=== PATIENT | male | born 1960 | race Caucasian/White ===

== ENCOUNTER 2017-07-31 12:08 | Emergency (ER) | payer OTHER ==
[2017-07-31] MEDS ORDERED: Albuterol/Ipratropium 3.0-0.5 MG/3 ML Neb Soln NEB ONE (12:15)
[2017-07-31] MEDS ORDERED: Sodium Chloride 0.9% 10 ML Syringe FLUSH PRN (12:25)
--- NOTE | 2017-07-31 12:28 | EDM.PDOC ---
ED HPI GENERAL MEDICAL PROBLEM - General Chief Complaint: Respiratory Problem Stated Complaint: BRONCHITIS NOT BETTER/LOW OXYGEN LEVEL Time Seen by Provider: 07/31/17 12:17 Source of Information: Reports: Patient History Limitations: Reports: No Limitations - History of Present Illness INITIAL COMMENTS - FREE TEXT/NARRATIVE: 56-year-old male presents the ER for evaluation and treatment of wheezing and shortness of breath. Reports that his symptoms started on Friday. He has a history of COPD and asthma. He presented to the clinic on Friday. He was started on antibiotics and steroids. He normally takes nebulizers at home and has been taking these as prescribed. He states that since being seen his symptoms have not improved. States in the clinic his oxygen levels were low in the upper 80s. He was encouraged him to the ER on Friday but decides to go home instead. Currently complaining of a little bit of a sore throat and headaches. No fevers, chills, nausea, vomiting or any ear pain. No swelling in the legs. Primary care providers Dr. Coombs - Related Data Allergies Allergy/AdvReac Type Severity Reaction Status Date / Time acetaminophen [From Percocet] Allergy Hives Verified 07/31/17 12:13 beeswax Allergy Airway Verified 07/31/17 12:13 Tightness oxycodone [From Percocet] Allergy Hives Verified 07/31/17 12:13 Home Meds: Home Meds Albuterol [IJD: Ventolin HFA] 1 puff INH Q4HR PRN #18 gm 07/31/17 [Rx] Albuterol [Ventolin HFA] 2 puff INH Q4H PRN 07/31/17 [History] Budesonide/Formoterol Fumarate [Symbicort 160-4.5 Mcg Inhaler] 2 puff IH BID #1 canister 07/31/17 [Rx] Diltiazem HCl [Dilt-Xr] 180 mg PO DAILY 07/31/17 [History] Doxycycline [Doxycycline Hyclate] 100 mg PO BID 07/31/17 [History] Hydrochlorothiazide 12.5 mg PO DAILY 07/31/17 [History] Prednisone [IJD: Prednisone] 10 mg PO DAILY #19 tab 07/31/17 [Rx] Prednisone [IMW: predniSONE] 20 mg PO BID 07/31/17 [History] Valsartan 160 mg PO DAILY 07/31/17 [History] Past Medical History Cardiovascular History: Reports: Hypertension Respiratory History: Reports: Asthma, Bronchitis, Recurrent, COPD Social & Family History - Tobacco Use Smoking Status *Q: Current Every Day Smoker Years of Tobacco use: 40 Packs/Tins Daily: 1 - Recreational Drug Use Recreational Drug Use: No ED ROS GENERAL - Review of Systems Review Of Systems: See Below Constitutional: Denies: Fever, Chills HEENT: Reports: Throat Pain. Denies: Ear Pain Respiratory: Reports: Shortness of Breath, Wheezing, Cough Cardiovascular: Denies: Chest Pain GI/Abdominal: Denies: Nausea, Vomiting Neurological: Reports: Headache ED EXAM, GENERAL - Physical Exam Exam: See Below Exam Limited By: No Limitations General Appearance: Alert, WD/WN, Mild Distress, Obese Eye Exam: Bilateral Eye: Normal Inspection Ears: Normal External Exam, Normal Canal, Hearing Grossly Normal, Normal TMs Nose: Normal Inspection Throat/Mouth: Normal Inspection, Normal Lips, Normal Voice, No Airway Compromise Respiratory/Chest: No Respiratory Distress, Lungs Clear, Normal Breath Sounds, Wheezing (diffuse expiratory) Cardiovascular: Normal Peripheral Pulses, Regular Rate, Rhythm, No Murmur Neurological: Alert, Oriented, Normal Cognition Psychiatric: Normal Affect, Normal Mood Skin Exam: Warm, Dry, Normal Color Course - Vital Signs Last Recorded V/S: Last Vital Signs Temp 37.2 C 07/31/17 12:15 Pulse 80 07/31/17 12:15 Resp 16 07/31/17 12:15 BP 143/93 H 07/31/17 12:15 Pulse Ox 95 07/31/17 13:19 - Orders/Labs/Meds Orders: Active Orders 24 hr Category Date Time Status Cardiac Monitoring [RC] . DIRECTED Care 07/31/17 12:25 Active Peripheral IV Care [RC] . DIRECTED Care 07/31/17 12:25 Active RT Aerosol Therapy [RC] ASDIRECTED Care 07/31/17 12:15 Active RT Aerosol Therapy [RC] ASDIRECTED Care 07/31/17 13:19 Active INFLUENZA A+B AG SCREEN [RM] Stat Lab 07/31/17 12:38 Ordered Peripheral IV Insertion Adult [OM.PC] Routine Oth 07/31/17 12:25 Ordered Labs: Laboratory Tests 07/31/17 07/31/17 Range/Units 12:37 12:37 WBC 7.33 (4.23-9.07) K/mm3 RBC 4.82 (4.63-6.08) M/mm3 Hgb 15.4 (13.7-17.5) gm/L Hct 45.6 (40.1-51.0) % MCV 94.6 H (79.0-92.2) fl MCH 32.0 (25.7-32.2) pg MCHC 33.8 (32.2-35.5) g/dl RDW Std Deviation 43.4 (35.1-43.9) fL Plt Count 185 (163-337) K/mm3 MPV 10.4 (9.4-12.3) fl Neutrophils % (Manual) 63 H (40-60) % Band Neutrophils % 7 (0-10) % Lymphocytes % (Manual) 29 (20-40) % Atypical Lymphs % 0 % Monocytes % (Manual) 1 L (2-10) % Eosinophils % (Manual) 0 L (0.8-7.0) % Basophils % (Manual) 0 L (0.2-1.2) Platelet Estimate Adequate RBC Morph Comment Normal Sodium 135 L (136-145) mEq/L Potassium 4.0 (3.5-5.1) mEq/L Chloride 100 (98-107) mEq/L Carbon Dioxide 24 (21-32) mEq/L Anion Gap 15.0 (5-15) BUN 12 (7-18) mg/dL Creatinine 1.2 (0.7-1.3) mg/dL Est Cr Clr Drug Dosing 70.13 mL/min Estimated GFR (MDRD) > 60 (>60) mL/min BUN/Creatinine Ratio 10.0 L (14-18) Glucose 130 H (74-106) mg/dL Calcium 8.7 (8.5-10.1) mg/dL Total Bilirubin 0.3 (0.2-1.0) mg/dL AST 21 (15-37) U/L ALT 34 (16-63) U/L Alkaline Phosphatase 96 (46-116) U/L C-Reactive Protein 1.1 H* (<1.0) mg/dL Total Protein 7.3 (6.4-8.2) g/dl Albumin 3.5 (3.4-5.0) g/dl Globulin 3.8 gm/dL Albumin/Globulin Ratio 0.9 L (1-2) Meds: Medications Discontinued Medications Generic Name Dose Route Start Last Admin Trade Name Katarina PRN Reason Stop Dose Admin Albuterol 2.5 mg 07/31/17 13:19 07/31/17 13:55 Proventil Neb Soln NEB 07/31/17 13:20 2.5 mg ONETIME ONE Administration Albuterol/Ipratropium 3 ml 07/31/17 12:15 07/31/17 12:28 Duoneb 3.0-0.5 Mg/3 Ml NEB 07/31/17 12:16 3 ml ONETIME ONE Administration Sodium Chloride 10 ml 07/31/17 12:25 07/31/17 12:55 Saline Flush FLUSH 10 ml ASDIRECTED PRN Administration Keep Vein Open - Radiology Interpretation Free Text/Narrative:: Chest: 2 views of the chest were obtained. Comparison: Prior chest x-ray at 12/18/11. Heart size and mediastinum are normal. Lungs are clear. Scattered degenerative change is noted within the spine. Impression: 1. Nothing acute is appreciated on 2 view chest x-ray. - Re-Assessments/Exams Free Text/Narrative Re-Assessment/Exam: 07/31/17 13:28 checked on the patient. Oxygen sats 90-94 on room air. Feels slightly improved after DuoNeb. Albuterol neb ordered. Awaiting labs and imaging. 07/31/17 15:29 Influenza returned negative. I reviewed the labs and imaging with the patient. Sounds improved after the albuterol neb. Will discharge home. Discharge instructions as documented. Departure - Departure Time of Disposition: 15:44 Disposition: Home, Self-Care 01 Condition: Fair Clinical Impression: COPD exacerbation, Upper respiratory infection - Discharge Information Prescriptions: Albuterol [IJD: Ventolin HFA] 1 puff INH Q4HR PRN #18 gm PRN Reason: Shortness Of Breath Budesonide/Formoterol Fumarate [Symbicort 160-4.5 Mcg Inhaler] 2 puff IH BID #1 canister Prednisone [IJD: Prednisone] 10 mg PO DAILY #19 tab Instructions: Chronic Obstructive Pulmonary Disease Exacerbation, [id number] , Upper Respiratory Infection, Adult, [id number] Referrals: Aneudy Maria MD [Primary Care Provider] - Forms: ED Department Discharge, ED Return to Work/School Form Additional Instructions: Take the Symbicort as prescribed tear. 2 puffs twice a day. Albuterol 1-2 puffs every 4-6 hours as needed for shortness of breath. Finish you prednisone 40 mg daily for 5 days. Then start the prednisione taper. 30 milligrams daily( 20 mg morning and 10 mg in the evening) x 3 days then 20 mg daily, (10 mg in the morning and 10 mg in the evening) x 3 days then 10 mg daily (morning) for 3 days. Continue on the doxycycline. Follow with Dr. Coombs in 7 to 10 days for recheck of your symptoms. Please return to the ER if your symptoms change or worsen. - My Orders Last 24 Hours: My Active Orders 07/31/17 12:15 RT Aerosol Therapy [RC] ASDIRECTED 07/31/17 12:25 Cardiac Monitoring [RC] . DIRECTED Peripheral IV Care [RC] . DIRECTED Peripheral IV Insertion Adult [OM.PC] Routine 07/31/17 12:38 INFLUENZA A+B AG SCREEN [RM] Stat 07/31/17 13:19 RT Aerosol Therapy [RC] ASDIRECTED - Assessment/Plan Last 24 Hours: My Active Orders 07/31/17 12:15 RT Aerosol Therapy [RC] ASDIRECTED 07/31/17 12:25 Cardiac Monitoring [RC] . DIRECTED Peripheral IV Care [RC] . DIRECTED Peripheral IV Insertion Adult [OM.PC] Routine 07/31/17 12:38 INFLUENZA A+B AG SCREEN [RM] Stat 07/31/17 13:19 RT Aerosol Therapy [RC] ASDIRECTED
[2017-07-31] MEDS ORDERED: Albuterol 0.083% 2.5 MG/3 ML Neb Soln NEB ONE (13:19)
--- NOTE | 2017-07-31 14:26 | CR ---
Chest: 2 views of the chest were obtained. Comparison: Prior chest x-ray at 12/18/11. Heart size and mediastinum are normal. Lungs are clear. Scattered degenerative change is noted within the spine. Impression: 1. Nothing acute is appreciated on 2 view chest x-ray. Diagnostic code #2
== END 2017-07-31 16:06 | disposition home or self-care (01) ==
LOC: JD.ED 12:08
DX: J44.1 Chronic obstructive pulmonary disease with (acute) exacerbation (principal); J06.9 Acute upper respiratory infection, unspecified; I10 Essential (primary) hypertension; J45.909 Unspecified asthma, uncomplicated; F17.210 Nicotine dependence, cigarettes, uncomplicated; Z88.5 Allergy status to narcotic agent; Z91.030 Bee allergy status; Z88.6 Allergy status to analgesic agent; Z79.899 Other long term (current) drug therapy
CPT/HCPCS: 36415; 71046; 80053; 85025; 86140; 87804; 94640; 99285; J7050; 99284

== ENCOUNTER 2019-01-07 04:07 | Emergency (ER) | payer MEDICAID, OTHER ==
--- NOTE | 2019-01-07 05:05 | EDM.PDOC ---
ED HPI GENERAL MEDICAL PROBLEM - General Chief Complaint: Neck Problem Stated Complaint: NECK PAIN INTO RIGHT SHOULDER Time Seen by Provider: 01/07/19 05:00 Source of Information: Reports: Patient, Family (spouse) History Limitations: Reports: No Limitations - History of Present Illness INITIAL COMMENTS - FREE TEXT/NARRATIVE: 58-year-old male presents to the ED with complaints of diffuse cervical neck pain. Patient states he has chronic neck pain since he was young that he lives with on a day-to-day basis. Over the last week or so pain is increased in intensity and is now worsens ever been before. He has no specific date or time where his neck was injured. Multiple things have happened to his neck over the years. 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 Pain tends to radiate along the right trapezius muscle and upper back along the long thoracic nerve. Numbness or tingling into his right hand or arm. He ascribes the pain is deep ache and burning. Onset: Unknown/Unsure (Chronic pain cervical spine worse the last week.) Duration: Chronic (Worse the last week) Location: Reports: Neck (Radiating to the right trapezius and upper back), Radiates to Quality: Reports: Ache, Burning (Right trapezius and upper back in the distribution of the long thoracic nerve) Severity: Moderate Improves with: Reports: None (78 out of 10) Worsens with: Reports: Other Context: Denies: Activity, Exercise, Lifting, Sick Contact, Trauma, Other Associated Symptoms: Reports: Headaches. Denies: Confusion, Chest Pain, Cough, cough w sputum, Diaphoresis, Fever/Chills, Loss of Appetite, Malaise, Nausea/ Vomiting, Rash, Seizure, Shortness of Breath, Syncope Treatments [employer]ATING [employer]MENT [employer]TER: Reports: NSAIDS (Motrin), Other (see below) (Crank of fair amount of vodka last night to try and get some sleep.) Neck Pain Score (Numeric/FACES): 8 - Related Data Allergies Allergy/AdvReac Type Severity Reaction Status Date / Time acetaminophen [From Percocet] Allergy Hives Verified 01/07/19 05:05 beeswax Allergy Airway Verified 01/07/19 05:05 Tightness oxycodone [From Percocet] Allergy Hives Verified 01/07/19 05:05 Home Meds: Home Meds Albuterol [IJD: Ventolin HFA] 1 puff INH Q4HR PRN #18 gm 07/31/17 [Rx] Albuterol [Ventolin HFA] 2 puff INH Q4H PRN 07/31/17 [History] Budesonide/Formoterol Fumarate [Symbicort 160-4.5 Mcg Inhaler] 2 puff IH BID #1 canister 07/31/17 [Rx] Valsartan 160 mg PO DAILY 07/31/17 [History] hydroCHLOROthiazide [Hydrochlorothiazide] 12.5 mg PO DAILY 07/31/17 [History] Diclofenac Sodium [Voltaren] 50 mg PO TID #24 tab.ec 01/07/19 [Rx] HYDROmorphone [Dilaudid] 4 mg PO Q8H PRN #16 tablet 01/07/19 [Rx] predniSONE [Deltasone] 20 mg PO ASDIRECTED #15 tablet 01/07/19 [Rx] Past Medical History Cardiovascular History: Reports: Hypertension Respiratory History: Reports: Asthma, Bronchitis, Recurrent, COPD Musculoskeletal History: Reports: Arthritis, Neck Pain, Chronic Social & Family History - Living Situation & Occupation Living situation: Reports: 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 Denies: Fever, Chills HEENT: Reports: Glasses Respiratory: Reports: Shortness of Breath, Wheezing (Has a history of COPD asthma) Cardiovascular: Reports: Blood Pressure Problem Endocrine: Reports: Fatigue GI/Abdominal: Reports: No Symptoms : Reports: No Symptoms Musculoskeletal: Reports: Neck Pain, Back Pain (Chronic cervical neck pain) Skin: Reports: No Symptoms Neurological: Reports: No Symptoms, Change in Speech Hematologic/Lymphatic: Reports: No Symptoms Immunologic: Reports: No Symptoms ED EXAM, UPPER BACK/NECK PAIN - Physical Exam Exam: See Below Exam Limited By: No Limitations General Appearance: Alert, WD/WN, No Apparent Distress, Other (Vital signs are stable) Throat/Mouth Exam: Normal Inspection, Normal Lips, Normal Oropharynx Head Exam: Atraumatic, Normocephalic Neck Exam: Paraspinous Muscle Tender (Mild C6-C7 bilaterally), Tenderness, Tender Lateral, Other (He has 5 loss of lateral rotation and lateral flexion bilaterally. Has full flexion and 5 loss of full extension.). No: Abnormal Alignment, Muscle Spasm, Painful Range of Motion, Spinous Processes Tender, Stiff Neck Nexus Criteria: No: Posterior, Midline Cervical Tenderness, Evidence of Intoxication, Altered Level of Consciousness, Focal Neurological Deficit, Painful Distraction Injuries Cardiovascular/Respiratory: Regular Rate, Rhythm, No M/R/G, Normal Peripheral Pulses GI/Abdominal: Normal Bowel Sounds, Soft, Non-Tender, No Organomegaly, No Abnormal Bruit, No Mass, Pelvis Stable Back Exam: Other (He has point tenderness over right thoracic rib head with evidence of rib head subluxations this area. Associated overlying muscle spasm.) Extremities: Normal Inspection, Normal Range of Motion, Non-Tender, No Pedal Edema, Normal Capillary Refill Neurologic: No Motor/Sensory Deficits, Alert, Normal Mood/Affect, Oriented x 3 DTR: 1+: Bicep (R), Bicep (L), Tricep (R), Tricep (L) Psychiatric: Normal Affect, Normal Mood Skin Exam: Normal Color, Warm/Dry Lymphatic: No Adenopathy Course - Vital Signs Last Recorded V/S: Last Vital Signs Temp 36.3 C 01/07/19 04:58 Pulse 81 01/07/19 04:58 Resp 16 01/07/19 04:58 BP 123/83 01/07/19 04:58 Pulse Ox 92 L 01/07/19 04:58 - Orders/Labs/Meds Orders: Active Orders 24 hr Category Date Time Status Cervical Spine wo Cont [CT] Stat Exams 01/07/19 05:00 Taken Meds: Medications Discontinued Medications Generic Name Dose Route Start Last Admin Trade Name Freq PRN Reason Stop Dose Admin Hydromorphone HCl 2 mg 01/07/19 05:42 Dilaudid PO 01/07/19 05:43 ONETIME ONE Indomethacin 50 mg 01/07/19 05:41 Indocin PO 01/07/19 05:42 ONETIME ONE Prednisone 20 mg 01/07/19 05:46 Prednisone PO 01/07/19 05:47 ONETIME ONE - Radiology Interpretation Free Text/Narrative:: 58-year-old male presents the ED with diffuse cervical neck pain worse in the right side than the left. It's rating into his right trapezius and upper back at this time but not down the right upper extremity. Reflexes are present at the triceps and biceps and brachioradialis in utero are symmetrical bilaterally. Motion of the cervical spine is near full with loss of 5 lateral flexion and extension. He does have pain in his right upper back which appears to be due to rib head subluxation at the T5 area. I'm going to have CT of the cervical spine done since he's got chronic neck pain for many years just worse the last week. 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 - Re-Assessments/Exams Free Text/Narrative Re-Assessment/Exam: 01/07/19 05:40 CT of the cervical spine reveals some degenerative changes at the facet joints particular C3 C4 C5 on the right side. There is anterior osteophyte formation at levels C5-C6 and C6-C7 levels. No disc protrusion is evident to cause any cord function and the foramina all appear patent. It therefore appears that his current pain syndrome is mostly due to degenerative arthritis. I'm going to place him on Voltaren 50 mg 3 times a day for 8 days. Deltasone 20 mg twice daily with breakfast and supper for 5 days and then once in the morning only for another 5 days to relieve inflammation he has an allergy to oxycodone and I'm therefore going to place him on Dilaudid or hydromorphone tablets 4 mg strength one half tablet to one full tablet at bedtime only to help sleep. I did give him 2 mg tablet of hydromorphone in the ED with indomethacin 50 mg and prednisone 20 mg now. He is going to try and go to the chiropractor this morning. Follow-up with personal care physician as needed. Departure - Departure Time of Disposition: 05:43 Disposition: Home, Self-Care 01 Condition: Fair Clinical Impression: Degenerative arthritis of cervical spine Qualifiers: Spinal osteoarthritis complication: without myelopathy or radiculopathy Qualified Code(s): M47.812 - Spondylosis without myelopathy or radiculopathy, cervical region - Discharge Information *PRESCRIPTION DRUG MONITORING PROGRAM REVIEWED*: Not Applicable *COPY OF PRESCRIPTION DRUG MONITORING REPORT IN PATIENT APRYL: Not Applicable Prescriptions: Diclofenac Sodium [Voltaren] 50 mg PO TID #24 tab.ec HYDROmorphone [Dilaudid] 4 mg PO Q8H PRN #16 tablet PRN Reason: Severe cervical neck pain predniSONE [Deltasone] 20 mg PO ASDIRECTED #15 tablet Instructions: Facet Syndrome Referrals: Aneudy Maria MD [Primary Care Provider] - Forms: ED Department Discharge Additional Instructions: Evaluation the emergency room tonight in regards to severe cervical neck pain worse on the right side as compared to the left. The reveals no prominent disc herniations and the disc spaces are actually fairly well maintained. There is fairly advanced arthritic changes at multiple levels in the facet joints on the right side of the neck from C3-C7. There is evidence of anterior osteophyte or degenerative changes at C5-C6 and C6-C7 and C7 thoracic 1 levels. This appears to be secondary to old trauma. Treatment is anti-inflammatory Voltaren 50 mg 3 times daily with food for 8 days to clear up inflammation. Deltasone 20 mg with breakfast and supper for 5 days and then 1 in the morning only for another 5 days. Dilaudid tablets 4 mg 1/2-1 tablet primarily at bedtime for pain relief to allow you to get proper sleep until the anti-inflammatories become effective. As we discussed follow-up with chiropractor advised for suspect rib head subluxation at thoracic 5 level on the right side. - My Orders Last 24 Hours: My Active Orders 01/07/19 05:00 Cervical Spine wo Cont [CT] Stat - Assessment/Plan Last 24 Hours: My Active Orders 01/07/19 05:00 Cervical Spine wo Cont [CT] Stat
[2019-01-07] MEDS ORDERED: Indomethacin 25 MG Cap PO ONE (05:41)
[2019-01-07] MEDS ORDERED: HYDROmorphone 2 MG Tab PO ONE (05:42)
[2019-01-07] MEDS ORDERED: predniSONE 20 MG Tab PO ONE (05:46)
--- NOTE | 2019-01-07 07:06 | CT ---
CT cervical spine Technique: Multiple axial sections were obtained from above C1 inferiorly to the bottom of T2. Reconstructed sagittal and coronal images were reviewed. Findings: Mild diffuse posterior disc space narrowing is seen. Anterior osteophytes are noted at C3-C4 through C7-T1. Detached bony density is noted anteriorly at C4-C5 which is due to degenerative calcification within the anterior longitudinal ligament. Vertebral body heights are maintained. No bony central or bony neural foraminal stenosis. No fracture is identified. No abnormal subluxation is seen on the reconstructed sagittal images. Mild scattered degenerative apophyseal change is seen throughout the cervical spine. Impression: 1. Mild diffuse degenerative change. 2. Nothing acute is appreciated on CT study of the cervical spine. Diagnostic code #2 I agree with preliminary report from [facility], finalized on 01/07/19, 6:44 AM Central Time
== END 2019-01-07 06:08 | disposition home or self-care (01) ==
LOC: JD.ED 04:07
DX: M47.812 Spondylosis without myelopathy or radiculopathy, cervical region (principal); I10 Essential (primary) hypertension; J45.909 Unspecified asthma, uncomplicated; Z88.8 Allergy status to other drugs, medicaments and biological substances; Z88.5 Allergy status to narcotic agent; Z91.030 Bee allergy status; Z79.51 Long term (current) use of inhaled steroids; Z79.899 Other long term (current) drug therapy
CPT/HCPCS: 72125; 99283; A9270

== ENCOUNTER 2019-11-12 17:06 | Emergency (ER) | payer MEDICAID ==
[2019-11-12] MEDS ORDERED: HYDROmorphone 1 MG/ML Syringe IVPUSH ONE (17:10)
[2019-11-12] MEDS ORDERED: Metoclopramide 10 MG/2 ML SDV IVPUSH ONE (17:11)
[2019-11-12] MEDS ORDERED: Sodium Chloride 0.9% 1,000 ML IV SCH (17:15)
[2019-11-12] MEDS ORDERED: Iopamidol 612 MG/ML 50 ML SDV IVPUSH ONE (17:22)
[2019-11-12] MEDS ORDERED: Iopamidol 612 MG/ML 100 ML Bottle IVPUSH ONE (17:22)
[2019-11-12] MEDS ORDERED: Sodium Chloride 0.9% 10 ML Syringe FLUSH ONE (17:22)
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
--- NOTE | 2019-11-12 18:36 | CT ---
CT chest Technique: Multiple axial sections through the chest were obtained. Intravenous contrast was utilized. Comparison: No prior chest imaging is available. Findings: Mediastinum and hilar regions are unremarkable. Increased density is noted within the superior mediastinal fat which is felt compatible with contusion. No other mediastinal abnormality is seen. Aorta appears within normal limits. No pericardial thickening is seen. Lungs are clear. No pulmonary contusion is seen. No pleural effusions or pneumothorax are seen. Bone window settings were reviewed which shows a fracture within the left side of the manubrium process as well as fracture at the junction of the right anterior 1st rib to the sternum. No additional acute rib fracture is appreciated. Impression: 1. Superior mediastinal contusion secondary to fracture within the left side of the manubrium as well as fracture within the anterior right 1st rib near its attachment to the sternum. 2. No other mediastinal abnormality is seen. No other acute finding is seen on CT study of the chest. Diagnostic code #3 This report was dictated in MDT CT abdomen and pelvis Technique: Multiple axial sections were obtained from above the dome of the diaphragm inferiorly through the pubic symphysis. Intravenous contrast was utilized. No oral contrast has been given. Findings: Fatty infiltration is seen within the liver with focal fatty sparing close to the gallbladder fossa. Gallbladder shows no calcified gallstones. Spleen size is normal. Adrenal glands show no nodule. Pancreas is within normal limits. Kidneys show symmetric contrast enhancement without hydronephrosis or mass. Aorta shows no aneurysm. Atherosclerotic calcification is seen within the aorta and iliac vessels. No retroperitoneal adenopathy or mesenteric abnormalities are seen. No pelvic mass or adenopathy is seen. No free fluid or inflammatory change is seen. Small fat-containing umbilical hernia is noted. No abdominal wall abnormality is appreciated. Appendix is seen which is normal in size. Bone window settings were reviewed which shows an old spinous process fracture within the right 3rd transverse process. No acute pelvic abnormality is appreciated. Bone lesion is noted within the anterior left femoral head believed to be degenerative in etiology and benign. Impression: 1. Old transverse process fracture within the right side at L3. 2. Other findings as noted above which are nonacute. Diagnostic code #2 This report was dictated in MDT
--- NOTE | 2019-11-12 18:37 | CT ---
Head CT Technique: Multiple axial sections through the brain were obtained. Intravenous contrast was not utilized. Comparison: No prior intracranial imaging is available. Findings: Ventricles along with basal cisterns and sulci over the convexities are mildly prominent. No abnormal parenchymal densities are seen. No evidence of intracranial hemorrhage. No midline shift or mass-effect is seen. Bone window settings were reviewed. No acute calvarial finding is appreciated. Mild mucosal thickening is seen within the left maxillary sinus. No acute paranasal sinus findings are seen. No acute mastoid sinus findings are seen. Impression: 1. Findings believed to be incidental as noted above. 2. No acute intracranial abnormality is appreciated. Diagnostic code #2 This report was dictated in MDT
--- NOTE | 2019-11-12 18:39 | CT ---
CT lumbar spine Technique: Multiple axial sections were obtained through the lumbar spine. Instructed coronal and sagittal images were reviewed. Findings: Old ununited fracture within the right transverse process of L3 is seen. No acute fracture is seen within the lumbar spine. No abnormal subluxation is seen. Scattered endplate osteophytes are seen. Scattered degenerative change within the apophyseal joints is noted. No bony central or neural foraminal stenosis is appreciated. Impression: 1. Mild degenerative change. 2. Nothing acute is appreciated on CT study of the lumbar spine. Diagnostic code #2 This report was dictated in MDT
--- NOTE | 2019-11-12 18:41 | CT ---
CT thoracic spine Technique: Multiple axial sections through the thoracic spine were obtained. Reconstructed coronal and sagittal images were obtained. Findings: Diffuse endplate osteophytes are seen. No acute fracture is seen. No abnormal subluxation is seen. No bony central or bony neural foraminal stenosis is appreciated. Impression: 1. Mild diffuse degenerative change. 2. No acute fracture or abnormal subluxation is seen. Diagnostic code #2 This report was dictated in MDT
--- NOTE | 2019-11-12 18:44 | CT ---
CT cervical spine Technique: Multiple axial sections were obtained from above C1 inferiorly to the mid T3 level. Reconstructed sagittal and coronal images were reviewed. Findings: Mild degenerative change is noted between the dens and anterior arch of C1. Mild scattered anterior endplate osteophytes are seen. Mild diffuse degenerative apophyseal change is seen throughout the cervical spine. Vertebral body heights are maintained. No discrete cervical spine fracture is appreciated. No abnormal subluxation is seen. No bony central or bony neural foraminal. Previous fracture within the anterior 1st rib near the sternal junction is again seen. Fracture is noted on the left side at the same location believed to be chronic as the ends are sclerotic. Impression: 1. Scattered degenerative change as described above. 2. No acute fracture or abnormal subluxation is seen. 3. Previously noted fracture within the anterior right 1st rib is again noted. Diagnostic code #2 This report was dictated in MDT
== END 2019-11-12 19:38 | disposition home or self-care (01) ==
LOC: JD.ED 17:06
DX: S22.32XA Fracture of one rib, left side, initial encounter for closed fracture (principal); S22.21XA Fracture of manubrium, initial encounter for closed fracture; S01.21XA Laceration without foreign body of nose, initial encounter; S39.012A Strain of muscle, fascia and tendon of lower back, initial encounter; S13.4XXA Sprain of ligaments of cervical spine, initial encounter; S40.022A Contusion of left upper arm, initial encounter; I10 Essential (primary) hypertension; J44.9 Chronic obstructive pulmonary disease, unspecified; F17.210 Nicotine dependence, cigarettes, uncomplicated; Z91.030 Bee allergy status; Z88.5 Allergy status to narcotic agent; Z79.899 Other long term (current) drug therapy; V53.6XXA Passenger in pick-up truck or van injured in collision with car, pick-up truck or van in traffic accident, initial encounter
CPT/HCPCS: 36415; 70450; 71260; 72125; 72128; 72131; 74177; 80053; 80307; 81001; 83735; 84484; 85025; 85610; 85730; 86850; 86900; 86901; 93005; 96374; 96375; 99285; J1170; J2765; J7030; Q9967; 93010; 99284

== ENCOUNTER 2019-11-21 00:49 | Emergency (ER) | payer MEDICAID ==
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
[2019-11-21] MEDS ORDERED: Iopamidol 755 Mg/ML 100 ML Bottle IVPUSH ONE (03:07)
[2019-11-21] MEDS: Sodium Chloride 0.9% 10 ML Syringe FLUSH PRN ×2 (03:14→03:33)
[2019-11-21] MEDS ORDERED: Sodium Chloride 0.9% 100 ML IV SCH (03:15)
[2019-11-21] MEDS ORDERED: Sodium Chloride 0.9% 1,000 ML IV SCH (03:15)
--- NOTE | 2019-11-22 05:33 | CR ---
Chest: PA and lateral views of the chest were obtained. Comparison: Prior chest x-ray of 07/31/17. Heart size and mediastinum are normal. Lungs are clear. Degenerative endplate spurring is noted within the spine. Impression: 1. Nothing acute is seen on 2 view chest x-ray. Diagnostic code #2 This report was dictated in MDT
--- NOTE | 2019-11-22 06:48 | CT ---
CT chest Technique: Multiple axial sections through the chest were obtained. Intravenous contrast was utilized. Comparison: No previous abdominal x-ray is available. Findings: Visualized upper abdominal structures shows no discrete abnormality. Mild coronary artery calcification is seen. Pulmonary arteries show no filling defects. Nothing is seen to indicate pulmonary embolism. Aorta shows atherosclerotic calcification without aneurysm. No dissection is seen. Mediastinum and hilar region show no adenopathy. No axillary adenopathy is seen. Mild atelectasis is noted within the right lung base. Mild apical scarring is noted on the right side. Lungs show no acute parenchymal change. Bone window settings were reviewed. Degenerative endplate spurring is noted throughout the spine with bridging osteophytes within the lower thoracic spine. No acute osseous finding is appreciated. Fractures are seen with the costosternal junction of both 1st ribs. On the left side fracture extends into the manubrium. Additional fracture is noted within the cartilage of the anterior left 2nd rib and within the anterior right 2nd rib. Impression: 1. No findings of pulmonary embolism. 2. Fractures within the anterior 1st and 2nd ribs. Left side fracture extends into the manubrium. 3. No other acute finding is seen. Diagnostic code #3 This report was dictated in MDT I agree with preliminary report from [facility], finalized on 11/21/19, 5:05 AM Central Daylight Time
== END 2019-11-21 06:43 | disposition home or self-care (01) ==
LOC: JD.ED 00:49
DX: R06.00 Dyspnea, unspecified (principal); I10 Essential (primary) hypertension; E66.9 Obesity, unspecified; J44.9 Chronic obstructive pulmonary disease, unspecified; F17.210 Nicotine dependence, cigarettes, uncomplicated; Z88.5 Allergy status to narcotic agent; Z91.030 Bee allergy status; Z79.899 Other long term (current) drug therapy; Z68.33 Body mass index [BMI] 33.0-33.9, adult
CPT/HCPCS: 36415; 71046; 71275; 80053; 83880; 84484; 85007; 85027; 85379; 93005; 99285; J7030; J7050; Q9967; 93010; 99283

== ENCOUNTER 2020-06-12 09:22 | Day surgery (SDC) | payer MEDICAID, OTHER ==
[~2020-06-12 09:22] MED LIST: Albuterol 0.083% 2.5 MG/3 ML Neb Soln NEB SCH; Ketamine 500 mg/10 ML MDV ONE; Ketorolac 30 MG/ML SDV ONE; Lactated Ringers 1,000 ML IV SCH; Lactated Ringers 1,000 ML ONE; Lidocaine 1%/Sod Bicarbonate in NS 8.4% 1 ML Syringe IDERM PRN; Midazolam 1 MG/ML 2 ML SDV ONE; Ondansetron 4 MG/2 ML SDV ONE; Propofol 200 MG/20 ML SDV ONE; Sodium Chloride 0.9% 10 ML Syringe FLUSH PRN; ceFAZolin 1 GM Vial ONE; fentaNYL 100 MCG/2 ML SDV ONE
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
[2020-06-12] MEDS ORDERED: Midazolam 1 MG/ML 2 ML SDV ONE ×2 (11:55→12:09)
[2020-06-12] MEDS ORDERED: Dexamethasone 4 MG/ML 5 ML MDV ONE (12:11)
[2020-06-12] MEDS ORDERED: Lactated Ringers 1,000 ML ONE ×2 (12:31→13:33)
[2020-06-12] MEDS: Vancomycin 1 GM SDV ONE ×2 (12:57→13:22)
[2020-06-12] MEDS: Morphine 8 MG, EPINEPHrine 0.3 MG, Cefuroxime 750 MG, Ketorolac 30 MG, Sodium Chloride ... PRN ×10 (12:58→13:20)
--- NOTE | 2020-06-12 14:01 | PCM.POSTAN ---
POST ANESTHESIA ASSESSMENT - MENTAL STATUS Mental Status: Alert, Oriented - VITAL SIGNS Vital Signs: Last Vital Signs Temp 36.7 C 06/12/20 13:48 Pulse 84 06/12/20 13:48 Resp 15 06/12/20 13:48 BP 120/78 06/12/20 13:48 Pulse Ox 96 06/12/20 13:48 - RESPIRATORY Respiratory Status: Respiratory Rate WNL, Airway Patent, O2 Saturation Stable - CARDIOVASCULAR CV Status: Pulse Rate WNL, Blood Pressure Stable - GASTROINTESTINAL GI Status: No Symptoms - PAIN Pain Score: 0 - POST OP HYDRATION Hydration Status: Adequate & Stable
--- NOTE | 2020-06-12 14:37 | PCM48HPAN ---
Post Anesthesia Note - EVALUATION WITHIN 48HRS OF ANESTHETIC Vital Signs in Normal Range: Yes Patient Participated in Evaluation: Yes Respiratory Function Stable: Yes Airway Patent: Yes Cardiovascular Function Stable: Yes Hydration Status Stable: Yes Pain Control Satisfactory: Yes Nausea and Vomiting Control Satisfactory: Yes Mental Status Recovered: Yes Vital Signs: Last Vital Signs Temp 36.7 C 06/12/20 14:15 Pulse 72 06/12/20 14:15 Resp 13 06/12/20 14:15 BP 120/72 06/12/20 14:15 Pulse Ox 99 06/12/20 14:15
--- NOTE | 2020-06-12 15:09 | CR ---
Pelvis and right hip: AP view of the pelvis was obtained as well as crosstable lateral views of the right hip. Comparison: Prior CT right hip study of 05/31/20. Findings: Right hip prosthesis is noted. Components are aligned. Underlying bony structures are intact. Joint space within the left hip is maintained. No acute fracture or other abnormality is appreciated. Impression: 1. Recently placed right hip prosthesis with no acute abnormality. 2. No other acute abnormality is appreciated. Diagnostic code #2
[2020-06-12] MEDS ORDERED: Acetaminophen/HYDROcodone 325-5 MG Tab PO PRN (15:28)
--- NOTE | 2020-06-20 14:17 | PCM.OPNOTE ---
- General Post-Op/Procedure Note Date of Surgery/Procedure: 06/12/20 Operative Procedure(s): Angel right total hip arthroplasty Pre Op Diagnosis: right hip osteoarthrosis Post-Op Diagnosis: Same Anesthesia Technique: Local, MAC, Spinal Primary Surgeon: Kendall Lei Anesthesia Provider: Eli Schafer Sample Maker Hand: Wendy Alejo EBL in mLs: 400 Complications: None Condition: Good Free Text/Narrative:: 6 stem 54 cup 36+5
--- NOTE | 2020-06-20 14:55 | OR ---
DATE OF OPERATION: 06/12/2020 SURGEON: Kendall Lei MD OPERATION PERFORMED: Angel robotic right total hip arthroplasty. PREOPERATIVE DIAGNOSIS: Right hip osteoarthrosis. POSTOPERATIVE DIAGNOSIS: Right hip osteoarthrosis. ANESTHESIA: Local MAC with spinal. ANESTHESIA PROVIDER: Marguerite Schafer SOFTWARE DEVELOPMENT MANAGER: Wendy Alejo LPN. ESTIMATED BLOOD LOSS: 400 mL. COMPLICATIONS: None. CONDITION: Stable. IMPLANT: 1. Emeka size 6 Accolade II stem. 2. Emeka size 54 mm solid Tritanium II acetabular cup. 3. Emeka size 36, +5 BIOLOX femoral head. DESCRIPTION OF PROCEDURE: The patient was identified in the preoperative holding area where proper site was marked and identified by the surgeon. The patient was taken back to the operating theater where after adequate anesthesia, the patient was placed in a left lateral decubitus position. Axillary roll was placed. All bony prominences were well padded. Pegs were placed and well padded. The patient's gluteal fold was parallel to the floor. Right hip was then sterilely prepped and draped in the usual sterile fashion. OR time-out was performed. The patient received 2 g IV Ancef. At this time, the array was placed on the pelvis making sure to be two to three finger lengths back from the ASIS. Stab incision was made. The 4.0 guide pin was then placed. A 2nd 4.0 guide pin was then placed and another incision was made and the array was placed, making sure that the probe was all the way down onto bone of the iliac crest. Standard posterior incision was then utilized and taken down to the IT band and gluteal fascia. This was incised along the incisional length. Charnley retractor was then placed. The checkpoint was then placed in the greater tuberosity. Takedown of the short external rotators as well as capsulotomy was performed all the way down to the lesser trochanter. Hip was then dislocated. Points were then registered and the neck cut was completed off those points. Attention was turned to the acetabulum. Anterior and posterior acetabular retractors were placed. Circumferential removal of the labrum and pulvinar was done at this time. Checkpoint registration was then done on the superior acetabular rim. 15 points were then registered within the acetabulum as well as the anterior and posterior horn, as well as 15 points on the outer portion of the acetabulum. At this time, a 54 mm reamer was applied to the [employer] robot. This was then placed. Retractors were removed and it was reamed until it was found to be adequately resected. A 54 mm Tritanium II acetabular cup was then impacted in place utilizing the Emeka Angel robot and was found to have adequate fixation. The 36 mm flat liner was impacted into place and attention was turned back to the femur. Box chisel was used out laterally. Starter awl was placed down the canal. Starting with the 0 broach, I was able to broach up to a size 6. This was found to be rotationally and vertically stable. 36, +5 was then trialed, was found to have adequate religious of leg length utilizing the Angel robot for leg length discrepancy compared to the contralateral side. At this time, the trial implants were removed. The size 6 Accolade II stem was impacted into place and the 36, +5 BIOLOX femoral head was impacted into place. The hip was then relocated. #5 Ethibond suture was used for closure of short external rotators and capsule. Periarticular injection was completed. 450 mL of IrriSept irrigation was irrigated through the hip along with 1 L of pulse lavage irrigation with Ancef. Topical tranexamic acid and vancomycin powder were applied. #2 barbed suture was used for closure of the IT band and gluteal fascia, 2-0 Vicryl as well as Stratafix was used for closure of the subcutaneous layer, and Prineo was used for skin closure. The patient had a sterile soft dressing applied and sent to the PACU in stable condition. MMODAL /[id number] EDUARDO
== END 2020-06-12 15:27 | disposition home or self-care (01) ==
LOC: JD.SDS 09:22
PROVIDERS: ATTEND Orthopaedic Surgery
DX: M16.11 Unilateral primary osteoarthritis, right hip (principal); I10 Essential (primary) hypertension; F17.210 Nicotine dependence, cigarettes, uncomplicated; E66.9 Obesity, unspecified; Z79.899 Other long term (current) drug therapy; Z91.030 Bee allergy status; Z88.8 Allergy status to other drugs, medicaments and biological substances; Z98.890 Other specified postprocedural states; Z68.34 Body mass index [BMI] 34.0-34.9, adult
CPT/HCPCS: 27130; 36415; 73501; 86850; 86900; 86901; 94640; 97110; 97116; 97161; 97165; A9270; C1713; C1776; J0171; J0690; J0697; J1100; J1885; J2250; J2270; J2370; J2405; J2704; J3010; J3370; J7120; 01214

== ENCOUNTER 2023-04-09 12:06 | Inpatient (IN) | payer MEDICAID, OTHER ==
[2023-04-09] MEDS ORDERED: Sodium Chloride 0.9% 10 ML Syringe FLUSH PRN ×2 (12:48→12:53)
[2023-04-09] MEDS ORDERED: Folic Acid 1 MG Tab PO ONE (12:53)
[2023-04-09] MEDS ORDERED: Albuterol/Ipratropium 3.0-0.5 MG/3 ML Neb Soln NEB ONE (12:53)
[2023-04-09] MEDS ORDERED: Thiamine 100 MG Tab PO ONE (12:53)
[2023-04-09] MEDS ORDERED: Iopamidol 755 Mg/ML 100 ML Bottle IVPUSH ONE (12:53)
[2023-04-09] MEDS ORDERED: Sodium Chloride 0.9% 100 ML IV SCH (13:00)
[2023-04-09] MEDS ORDERED: Sodium Chloride 0.9% 1,000 ML IV SCH ×2 (13:00→16:15)
[2023-04-09 13:37] LABS: BASOPHILS ABSOLUTE AUTO 0.1 K/mm3 (0.0-0.2); BASOPHILS PERCENT AUTO 1.6 % (0.0-1.0); EOSINOPHILS ABSOLUTE AUTO 0.1 K/mm3 (0.0-0.4); EOSINOPHILS PERCENT AUTO 0.9 % (0.0-6.0); HEMATOCRIT 42.1 % (42.0-52.0); IMMATURE GRAN ABSOLUTE AUTO 0.02 K/mm3 (0.00-0.05); IMMATURE GRAN PERCENT AUTO 0.3 % (0.0-0.4); LYMPHOCYTES ABSOLUTE AUTO 1.3 K/mm3 (1.0-4.8); LYMPHOCYTES PERCENT AUTO 22.2 % (24.0-44.0); MEAN CORPUSCULAR HEMOGLOBIN 34.4 pg (28.0-32.0); MEAN CORPUSCULAR HGB CONC 35.6 g/dl (32.0-36.0); MEAN CORPUSCULAR VOLUME 96.6 fl (83.0-99.0); MEAN PLATELET VOLUME 10.1 fl (9.4-12.4); MONOCYTES ABSOLUTE AUTO 0.7 K/mm3 (0.0-0.8); MONOCYTES PERCENT AUTO 12.6 % (0.0-8.0); NEUTROPHILS ABSOLUTE AUTO 3.6 K/mm3 (1.8-7.7); NEUTROPHILS PERCENT AUTO 62.4 % (41.0-71.0); PLATELET COUNT,PLT 121 K/mm3 (150-400); RED BLOOD CELL COUNT 4.36 M/mm3 (4.52-5.90); WHITE BLOOD CELL COUNT,WBC 5.73 K/mm3 (3.9-11.3)
[2023-04-09 13:55] LABS: A/G RATIO 0.9 (1-2); ALBUMIN 3.3 g/dl (3.4-5.0); ANION GAP 16.7 (5-15); BILIRUBIN TOTAL 0.7 mg/dL (0.2-1.0); BUN/CREATININE RATIO 14.5 (14-18); CALCIUM 8.5 mg/dL (8.5-10.1); CREATININE 1.1 mg/dL (0.7-1.3); EST CRCL DRUG DOSING (CG) 66.5 mL/min; POTASSIUM,K 3.7 mEq/L (3.5-5.1)
[2023-04-09 13:56] LABS: ETHANOL BLOOD MEDICAL 0.17 gm% (0.00); MAGNESIUM 1.4 mg/dL (1.8-2.4)
[2023-04-09] MEDS ORDERED: Magnesium Oxide 400 MG Tab PO ONE (14:01)
[2023-04-09 14:02] LABS: INR 1.02; PROTHROMBIN TIME 10.9 SECONDS (9.7-12.0)
[2023-04-09] MEDS ORDERED: LORazepam 2 MG/ML SDV IVPUSH ONE ×2 (14:57→15:29)
[2023-04-09] MEDS ORDERED: Ondansetron 4 MG Tab.DIS PO PRN (16:15)
[2023-04-09] MEDS ORDERED: LORazepam 2 MG/ML SDV IVPUSH PRN (16:22)
[2023-04-09] MEDS: Nicotine 14 MG/24 Hr Patch TRDERM SCH (17:51)
[2023-04-09] MEDS: Heparin Sodium 5,000 Units/ML Vial SUBCUT SCH (17:51)
[2023-04-09 22:26] LABS: APPEARANCE,URINE CLEAR (Clear); BILIRUBIN,URINE 1+ (Negative); COLOR,URINE DARK YELLOW (Yellow); GLUCOSE,URINE NEGATIVE (Negative); KETONES,URINE 1+ (Negative); LEUKOCYTE ESTERASE,URINE NEGATIVE (Negative); NITRITE,URINE NEGATIVE (Negative); OCCULT BLOOD,URINE NEGATIVE (Negative); PROTEIN,URINE 1+ (Negative)
[2023-04-09 22:38] LABS: BARBITURATE SCREEN,URINE NEGATIVE (CUTOFF=200); BENZODIAZEPINES SCREEN,URINE PRESUMPTIVE POSITIVE (CUTOFF=150); BUPRENORPHINE SCREEN,URINE NEGATIVE (CUTOFF=10); METHADONE SCREEN, URINE NEGATIVE (CUT0FF=200); METHAMPHETAMINES SCREEN, URINE NEGATIVE (CUTOFF=500); OXYCODONE SCREEN,URINE NEGATIVE (CUT0FF=100); THC SCREEN,URINE 20 NG/ML NEGATIVE (CUTOFF=50)
[2023-04-09 22:44] LABS: AMPHETAMINES SCREEN, URINE NEGATIVE (CUTOFF=500)
[2023-04-09 22:47] LABS: BACTERIA,URINE FEW /hpf (FEW); MUCUS,URINE FEW /hpf (FEW); RBC,URINE 0-5 /hpf (0-5); SQUAMOUS EPITHELIAL CELLS,UR 0-5 /hpf (0-5); WBC,URINE 0-5 /hpf (0-5)
[2023-04-10] MEDS: Heparin Sodium 5,000 Units/ML Vial SUBCUT SCH ×3 (00:55→19:15)
[2023-04-10 05:28] LABS: A/G RATIO 0.9 (1-2); ALBUMIN 2.9 g/dl (3.4-5.0); ANION GAP 13.8 (5-15); CALCIUM 7.8 mg/dL (8.5-10.1); EST CRCL DRUG DOSING (CG) 73.15 mL/min; MAGNESIUM 1.5 mg/dL (1.8-2.4); POTASSIUM,K 3.8 mEq/L (3.5-5.1); PROTEIN TOTAL,TP 6.1 g/dl (6.4-8.2)
[2023-04-10 05:51] LABS: BASOPHILS ABSOLUTE AUTO 0.1 K/mm3 (0.0-0.2); BASOPHILS PERCENT AUTO 1.8 % (0.0-1.0); EOSINOPHILS ABSOLUTE AUTO 0.1 K/mm3 (0.0-0.4); EOSINOPHILS PERCENT AUTO 1.6 % (0.0-6.0); HEMATOCRIT 39.4 % (42.0-52.0); HEMOGLOBIN 13.9 gm/dl (14.0-18.0); IMMATURE GRAN ABSOLUTE AUTO 0.02 K/mm3 (0.00-0.05); IMMATURE GRAN PERCENT AUTO 0.5 % (0.0-0.4); MEAN CORPUSCULAR HEMOGLOBIN 34.5 pg (28.0-32.0); MEAN CORPUSCULAR HGB CONC 35.3 g/dl (32.0-36.0); MEAN CORPUSCULAR VOLUME 97.8 fl (83.0-99.0); MEAN PLATELET VOLUME 10.4 fl (9.4-12.4); MONOCYTES ABSOLUTE AUTO 0.4 K/mm3 (0.0-0.8); MONOCYTES PERCENT AUTO 8.4 % (0.0-8.0); NEUTROPHILS ABSOLUTE AUTO 2.9 K/mm3 (1.8-7.7); NEUTROPHILS PERCENT AUTO 64.7 % (41.0-71.0); PLATELET COUNT,PLT 93 K/mm3 (150-400); RED BLOOD CELL COUNT 4.03 M/mm3 (4.52-5.90)
[2023-04-10 07:19] LABS: SLIDE REVIEW ABNORMAL SMEAR
[2023-04-10] MEDS ORDERED: Magnesium Sulfate/Water 2 GM/50 ML BAG IV ONE (07:50)
[2023-04-10] MEDS: Nicotine 14 MG/24 Hr Patch TRDERM SCH (08:16)
[2023-04-10] MEDS: Hydrochlorothiazide 12.5 MG Cap PO SCH (08:37)
[2023-04-10] MEDS: atorvaSTATin 20 MG Tab PO SCH (08:37)
[2023-04-10] MEDS: Losartan 100 MG Tab PO SCH (08:38)
[2023-04-10] MEDS: Diltiazem 180 MG Cap.CD PO SCH (08:38)
[2023-04-10] MEDS: LORazepam 2 MG/ML SDV IVPUSH PRN ×4 (11:14→23:52)
[2023-04-10] MEDS ORDERED: Albuterol 6.7 GM Inhaler INH PRN (11:50)
[2023-04-10] MEDS: Albuterol/Ipratropium 3.0-0.5 MG/3 ML Neb Soln NEB PRN ×2 (11:56→20:26)
[2023-04-10] MEDS: Thiamine 100 MG Tab PO SCH (20:41)
[2023-04-10] MEDS: Folic Acid 1 MG Tab PO SCH (20:41)
[2023-04-11] MEDS: Albuterol/Ipratropium 3.0-0.5 MG/3 ML Neb Soln NEB PRN (01:27)
[2023-04-11] MEDS: LORazepam 2 MG/ML SDV IVPUSH PRN ×3 (03:51→20:17)
[2023-04-11] MEDS: Meloxicam 7.5 MG Tab PO SCH (05:24)
[2023-04-11] MEDS: Losartan 100 MG Tab PO SCH (08:36)
[2023-04-11] MEDS: Hydrochlorothiazide 12.5 MG Cap PO SCH (08:36)
[2023-04-11] MEDS: atorvaSTATin 20 MG Tab PO SCH (08:36)
[2023-04-11] MEDS: Diltiazem 180 MG Cap.CD PO SCH (08:37)
[2023-04-11] MEDS: Heparin Sodium 5,000 Units/ML Vial SUBCUT SCH ×2 (08:38)
[2023-04-11] MEDS: Nicotine 14 MG/24 Hr Patch TRDERM SCH (08:38)
[2023-04-11] MEDS: Folic Acid 1 MG Tab PO SCH (20:19)
[2023-04-11] MEDS: Thiamine 100 MG Tab PO SCH (20:19)
[2023-04-11] MEDS ORDERED: Temazepam 7.5 MG Cap PO ONE ×2 (22:30)
[2023-04-12] MEDS: Meloxicam 7.5 MG Tab PO SCH (05:43)
[2023-04-12 05:50] LABS: BASOPHILS ABSOLUTE AUTO 0.1 K/mm3 (0.0-0.2); EOSINOPHILS ABSOLUTE AUTO 0.2 K/mm3 (0.0-0.4); EOSINOPHILS PERCENT AUTO 2.8 % (0.0-6.0); HEMATOCRIT 41.7 % (42.0-52.0); HEMOGLOBIN 14.7 gm/dl (14.0-18.0); IMMATURE GRAN ABSOLUTE AUTO 0.02 K/mm3 (0.00-0.05); IMMATURE GRAN PERCENT AUTO 0.3 % (0.0-0.4); LYMPHOCYTES ABSOLUTE AUTO 1.5 K/mm3 (1.0-4.8); LYMPHOCYTES PERCENT AUTO 24.4 % (24.0-44.0); MEAN CORPUSCULAR HEMOGLOBIN 34.3 pg (28.0-32.0); MEAN CORPUSCULAR HGB CONC 35.3 g/dl (32.0-36.0); MEAN CORPUSCULAR VOLUME 97.4 fl (83.0-99.0); MEAN PLATELET VOLUME 10.6 fl (9.4-12.4); MONOCYTES ABSOLUTE AUTO 0.6 K/mm3 (0.0-0.8); MONOCYTES PERCENT AUTO 9.7 % (0.0-8.0); NEUTROPHILS ABSOLUTE AUTO 3.7 K/mm3 (1.8-7.7); NEUTROPHILS PERCENT AUTO 61.8 % (41.0-71.0); PLATELET COUNT,PLT 93 K/mm3 (150-400); RED BLOOD CELL COUNT 4.28 M/mm3 (4.52-5.90); WHITE BLOOD CELL COUNT,WBC 5.98 K/mm3 (3.9-11.3)
[2023-04-12 06:11] LABS: SLIDE REVIEW ABNORMAL SMEAR
[2023-04-12 06:17] LABS: A/G RATIO 0.9 (1-2); ALBUMIN 3.4 g/dl (3.4-5.0); ANION GAP 16.9 (5-15); BILIRUBIN TOTAL 0.8 mg/dL (0.2-1.0); CALCIUM 9.1 mg/dL (8.5-10.1); EST CRCL DRUG DOSING (CG) 73.15 mL/min; POTASSIUM,K 3.9 mEq/L (3.5-5.1); PROTEIN TOTAL,TP 7.3 g/dl (6.4-8.2)
[2023-04-12] MEDS: Hydrochlorothiazide 12.5 MG Cap PO SCH (08:29)
[2023-04-12] MEDS: Diltiazem 180 MG Cap.CD PO SCH (08:29)
[2023-04-12] MEDS: atorvaSTATin 20 MG Tab PO SCH (08:29)
[2023-04-12] MEDS: Nicotine 14 MG/24 Hr Patch TRDERM SCH (08:31)
[2023-04-12] MEDS: Losartan 100 MG Tab PO SCH (08:31)
== END 2023-04-12 12:44 | disposition home or self-care (01) | DRG 897 ==
LOC: JD.ED 12:06 → JD.ICU 15:47
PROVIDERS: ADMIT Internal Medicine; ATTEND Internal Medicine
DX: F10.239 Alcohol dependence with withdrawal, unspecified (principal); G45.9 Transient cerebral ischemic attack, unspecified; R68.89 Other general symptoms and signs; J44.9 Chronic obstructive pulmonary disease, unspecified; D69.6 Thrombocytopenia, unspecified; R47.81 Slurred speech; G47.30 Sleep apnea, unspecified; M19.90 Unspecified osteoarthritis, unspecified site; E66.9 Obesity, unspecified; R73.03 Prediabetes; F17.210 Nicotine dependence, cigarettes, uncomplicated; E78.5 Hyperlipidemia, unspecified; F41.9 Anxiety disorder, unspecified; E86.0 Dehydration; I10 Essential (primary) hypertension; F10.229 Alcohol dependence with intoxication, unspecified; Z79.82 Long term (current) use of aspirin; Z79.899 Other long term (current) drug therapy; Z91.030 Bee allergy status; Z88.5 Allergy status to narcotic agent; Z98.890 Other specified postprocedural states; Z88.8 Allergy status to other drugs, medicaments and biological substances; Z68.32 Body mass index [BMI] 32.0-32.9, adult
CPT/HCPCS: 36415; 70450; 70450-26; 70496; 70496-26; 70498; 70498-26; 70551; 70551-26; 71046; 71046-26; 80053; 80306; 80307; 81001; 83735; 83880; 84484; 85025; 85610; 93005; 93010; 93307; 94640; 96374; 96376; 97161-GP; 99223; 99232; 99233; 99239; 99285; 99285-25; A9270-GY; J1644; J2060; J3475; J3490; J7030; J7620-GY

== ENCOUNTER 2023-10-09 15:40 | Emergency (ER) | payer MEDICAID ==
[2023-10-09] MEDS ORDERED: Sodium Chloride 0.9% 10 ML Syringe FLUSH PRN (16:04)
[2023-10-09] MEDS: Albuterol/Ipratropium 3.0-0.5 MG/3 ML Neb Soln NEB ONE (16:16)
[2023-10-09] MEDS: methylPREDNISolone Sodium Succinate 125 MG/2 ML SDV IVPUSH ONE (16:43)
[2023-10-09 17:01] LABS: BASOPHILS ABSOLUTE AUTO 0.1 K/mm3 (0.0-0.2); EOSINOPHILS ABSOLUTE AUTO 0.1 K/mm3 (0.0-0.4); EOSINOPHILS PERCENT AUTO 1.4 % (0.0-6.0); HEMATOCRIT 40.9 % (42.0-52.0); IMMATURE GRAN ABSOLUTE AUTO 0.04 K/mm3 (0.00-0.05); IMMATURE GRAN PERCENT AUTO 0.5 % (0.0-0.4); LYMPHOCYTES ABSOLUTE AUTO 1.9 K/mm3 (1.0-4.8); LYMPHOCYTES PERCENT AUTO 23.9 % (24.0-44.0); MEAN CORPUSCULAR HGB CONC 34.2 g/dl (32.0-36.0); MEAN CORPUSCULAR VOLUME 99.3 fl (83.0-99.0); MEAN PLATELET VOLUME 9.4 fl (9.4-12.4); NEUTROPHILS ABSOLUTE AUTO 4.7 K/mm3 (1.8-7.7); NEUTROPHILS PERCENT AUTO 60.2 % (41.0-71.0); PLATELET COUNT,PLT 184 K/mm3 (150-400); RED BLOOD CELL COUNT 4.12 M/mm3 (4.52-5.90); WHITE BLOOD CELL COUNT,WBC 7.82 K/mm3 (3.9-11.3)
[2023-10-09 17:11] LABS: ALBUMIN 3.1 g/dl (3.4-5.0); ANION GAP 14.9 (5-15); BILIRUBIN TOTAL 0.3 mg/dL (0.2-1.0); BUN/CREATININE RATIO 9.2 (14-18); C-REACTIVE PROTEIN 0.32 mg/dL (<0.30); CALCIUM 8.6 mg/dL (8.5-10.1); CREATININE 1.3 mg/dL (0.7-1.3); EST CRCL DRUG DOSING (CG) 55.54 mL/min; POTASSIUM,K 3.9 mEq/L (3.5-5.1); PROTEIN TOTAL,TP 6.3 g/dl (6.4-8.2)
[2023-10-09 17:37] LABS: CORONAVIRUS COVID-19 NAA NEGATIVE (NEGATIVE); INFLUENZA A NAA NEGATIVE (NEGATIVE); RESPIRATORY SYNCYTIAL VIR NAA NEGATIVE (NEGATIVE)
== END 2023-10-09 17:31 | disposition home or self-care (01) ==
LOC: JD.ED 15:40
DX: J44.1 Chronic obstructive pulmonary disease with (acute) exacerbation (principal); I10 Essential (primary) hypertension; M19.90 Unspecified osteoarthritis, unspecified site; E66.9 Obesity, unspecified; F17.210 Nicotine dependence, cigarettes, uncomplicated; Z91.030 Bee allergy status; Z88.8 Allergy status to other drugs, medicaments and biological substances; Z79.82 Long term (current) use of aspirin; Z79.899 Other long term (current) drug therapy; Z86.16 Personal history of COVID-19; Z68.36 Body mass index [BMI] 36.0-36.9, adult
CPT/HCPCS: 0241U; 36415; 71046; 80053; 84484; 85025; 86140; 93005; 94640; 96374; 99285; J2919; 93010; 99283; J7620-GY

== ENCOUNTER 2023-12-23 12:43 | Inpatient (IN) | payer MEDICAID ==
[2023-12-23 13:18] LABS: BASOPHILS ABSOLUTE AUTO 0.1 K/mm3 (0.0-0.2); BASOPHILS PERCENT AUTO 1.9 % (0.0-1.0); EOSINOPHILS ABSOLUTE AUTO 0.1 K/mm3 (0.0-0.4); EOSINOPHILS PERCENT AUTO 1.3 % (0.0-6.0); HEMATOCRIT 41.2 % (42.0-52.0); IMMATURE GRAN ABSOLUTE AUTO 0.02 K/mm3 (0.00-0.05); IMMATURE GRAN PERCENT AUTO 0.3 % (0.0-0.4); LYMPHOCYTES ABSOLUTE AUTO 1.9 K/mm3 (1.0-4.8); LYMPHOCYTES PERCENT AUTO 30.8 % (24.0-44.0); MEAN CORPUSCULAR HEMOGLOBIN 34.1 pg (28.0-32.0); MEAN CORPUSCULAR VOLUME 100.2 fl (83.0-99.0); MEAN PLATELET VOLUME 9.2 fl (9.4-12.4); MONOCYTES ABSOLUTE AUTO 0.8 K/mm3 (0.0-0.8); MONOCYTES PERCENT AUTO 13.5 % (0.0-8.0); NEUTROPHILS ABSOLUTE AUTO 3.2 K/mm3 (1.8-7.7); NEUTROPHILS PERCENT AUTO 52.2 % (41.0-71.0); PLATELET COUNT,PLT 210 K/mm3 (150-400); RED BLOOD CELL COUNT 4.11 M/mm3 (4.52-5.90)
[2023-12-23 13:40] LABS: A/G RATIO 1.2 (1-2); ALBUMIN 3.3 g/dl (3.4-5.0); ANION GAP 13.7 (5-15); BILIRUBIN TOTAL 0.4 mg/dL (0.2-1.0); BUN/CREATININE RATIO 9.1 (14-18); CALCIUM 8.1 mg/dL (8.5-10.1); CREATININE 1.1 mg/dL (0.7-1.3); EST CRCL DRUG DOSING (CG) 65.64 mL/min; ETHANOL BLOOD MEDICAL 0.34 gm% (0.00); MAGNESIUM 1.8 mg/dL (1.8-2.4); POTASSIUM,K 3.7 mEq/L (3.5-5.1); PROTEIN TOTAL,TP 6.1 g/dl (6.4-8.2)
[2023-12-23] MEDS: Lactated Ringers 1,000 ML IV SCH (13:46)
[2023-12-23] MEDS: hydrOXYzine HCl 25 MG Tab PO ONE (14:27)
[2023-12-23] MEDS: Folic Acid 1 MG Tab PO ONE (17:37)
[2023-12-23] MEDS: Thiamine 100 MG in Sodium Chloride 0.9% 100 ML IV ONE (17:37)
[2023-12-23] MEDS ORDERED: LORazepam 2 MG/ML SDV IV PRN (18:42)
[2023-12-23] MEDS ORDERED: Melatonin 3 MG Tab PO PRN (19:04)
[2023-12-23] MEDS ORDERED: Polyethylene Glycol 3350 Powder 17 GM Packet PO PRN (19:04)
[2023-12-23] MEDS: LORazepam 2 MG/ML SDV IV PRN (19:51)
[2023-12-23] MEDS: Albuterol/Ipratropium 3.0-0.5 MG/3 ML Neb Soln NEB PRN (20:04)
[2023-12-23] MEDS: Sodium Chloride 0.9% 1,000 ML IV SCH (20:08)
[2023-12-23] MEDS: Diclofenac Sodium 1% Gel 100 GM Tube TOP PRN (20:09)
[2023-12-24 05:04] LABS: HEMATOCRIT 41.3 % (42.0-52.0); HEMOGLOBIN 13.8 gm/dl (14.0-18.0); MEAN CORPUSCULAR HEMOGLOBIN 33.9 pg (28.0-32.0); MEAN CORPUSCULAR HGB CONC 33.4 g/dl (32.0-36.0); MEAN CORPUSCULAR VOLUME 101.5 fl (83.0-99.0); MEAN PLATELET VOLUME 9.5 fl (9.4-12.4); PLATELET COUNT,PLT 188 K/mm3 (150-400); RED BLOOD CELL COUNT 4.07 M/mm3 (4.52-5.90); WHITE BLOOD CELL COUNT,WBC 6.98 K/mm3 (3.9-11.3)
[2023-12-24 05:46] LABS: A/G RATIO 1.1 (1-2); ALBUMIN 3.1 g/dl (3.4-5.0); ANION GAP 12.6 (5-15); BILIRUBIN TOTAL 0.7 mg/dL (0.2-1.0); CALCIUM 8.3 mg/dL (8.5-10.1); EST CRCL DRUG DOSING (CG) 72.2 mL/min; MAGNESIUM 1.5 mg/dL (1.8-2.4); POTASSIUM,K 3.6 mEq/L (3.5-5.1); PROTEIN TOTAL,TP 5.9 g/dl (6.4-8.2)
[2023-12-24] MEDS: Enoxaparin 40 MG/0.4 ML Syringe SUBCUT SCH (08:35)
[2023-12-24] MEDS: Folic Acid 1 MG Tab PO SCH (08:36)
[2023-12-24] MEDS: Thiamine 100 MG Tab PO SCH (08:36)
[2023-12-24] MEDS: atorvaSTATin 20 MG Tab PO SCH (08:36)
[2023-12-24] MEDS: Multivitamin Tab PO SCH (08:36)
[2023-12-24] MEDS: Aspirin 81 MG Tab.EC PO SCH (08:37)
[2023-12-24] MEDS ORDERED: Non-Formulary Medication 1 Each (Atorvastatin 10 MG Tablet) PO SCH (09:00)
[2023-12-24] MEDS ORDERED: Albuterol 0.5% 2.5 MG/0.5 ML Neb Soln INH PRN (12:35)
[2023-12-24] MEDS ORDERED: Loperamide 2 MG Cap PO PRN (13:26)
[2023-12-24] MEDS: Magnesium Sulfate/Water 2 GM in Premix Bag 1 BAG IV ONE (14:13)
[2023-12-24] MEDS: Diltiazem 180 MG Cap.CD PO SCH (14:13)
[2023-12-24] MEDS: Hydrochlorothiazide 25 MG Tab PO SCH (14:13)
[2023-12-24] MEDS: Nicotine 14 MG/24 Hr Patch TRDERM SCH (14:17)
[2023-12-24] MEDS ORDERED: Ibuprofen 400 MG Tab PO PRN (17:14)
[2023-12-24] MEDS: Ondansetron 4 MG Tab.DIS PO PRN (18:07)
[2023-12-25 04:52] LABS: HEMATOCRIT 41.6 % (42.0-52.0); HEMOGLOBIN 13.9 gm/dl (14.0-18.0); MEAN CORPUSCULAR HEMOGLOBIN 33.9 pg (28.0-32.0); MEAN CORPUSCULAR HGB CONC 33.4 g/dl (32.0-36.0); MEAN CORPUSCULAR VOLUME 101.5 fl (83.0-99.0); MEAN PLATELET VOLUME 9.4 fl (9.4-12.4); PLATELET COUNT,PLT 167 K/mm3 (150-400); WHITE BLOOD CELL COUNT,WBC 7.49 K/mm3 (3.9-11.3)
[2023-12-25 05:40] LABS: ALBUMIN 3.1 g/dl (3.4-5.0); ANION GAP 9.9 (5-15); BUN/CREATININE RATIO 7.8 (14-18); CALCIUM 8.4 mg/dL (8.5-10.1); CREATININE 0.9 mg/dL (0.7-1.3); EST CRCL DRUG DOSING (CG) 80.22 mL/min; POTASSIUM,K 3.9 mEq/L (3.5-5.1); PROTEIN TOTAL,TP 6.2 g/dl (6.4-8.2)
[2023-12-25] MEDS: Mometasone Furoate HFA 200 mcg/Puff 13 GM Inhaler INH SCH (08:00)
[2023-12-25] MEDS: Losartan 100 MG Tab PO SCH (09:51)
[2023-12-25] MEDS: traZODone 50 MG Tab PO SCH (20:45)
== END 2023-12-26 13:00 | disposition home or self-care (01) | DRG 897 ==
LOC: JD.ED 12:43 → JD.ICU 19:25
PROVIDERS: ADMIT Family Medicine; ATTEND Family Medicine
DX: F10.139 Alcohol abuse with withdrawal, unspecified (principal); I10 Essential (primary) hypertension; G47.33 Obstructive sleep apnea (adult) (pediatric); J44.9 Chronic obstructive pulmonary disease, unspecified; E66.9 Obesity, unspecified; M19.90 Unspecified osteoarthritis, unspecified site; I11.0 Hypertensive heart disease with heart failure; I50.9 Heart failure, unspecified; H54.7 Unspecified visual loss; Z88.8 Allergy status to other drugs, medicaments and biological substances; E78.5 Hyperlipidemia, unspecified; E83.42 Hypomagnesemia; Z68.37 Body mass index [BMI] 37.0-37.9, adult; I48.0 Paroxysmal atrial fibrillation; R09.02 Hypoxemia; F41.9 Anxiety disorder, unspecified; F17.210 Nicotine dependence, cigarettes, uncomplicated; Z88.5 Allergy status to narcotic agent; Z79.82 Long term (current) use of aspirin; Z86.16 Personal history of COVID-19; Z91.030 Bee allergy status; Z96.649 Presence of unspecified artificial hip joint; Z79.899 Other long term (current) drug therapy; Y90.8 Blood alcohol level of 240 mg/100 ml or more
CPT/HCPCS: 36415; 71045; 80053; 80307; 83735; 83880; 85025; 96361; 96365; 99285; A9270 ×2; J3411; J3490; J7120; 84100; 85027; 94640; 94760; 94762; 97110-GP; 97161-GP; J1650; J2060; J3475; J7030; J7620-GY

== ENCOUNTER 2024-02-18 07:00 | Day surgery (SDC) | payer MEDICAID ==
[~2024-02-18 07:00] MED LIST changes: -Albuterol 0.083% 2.5 MG/3 ML Neb Soln NEB SCH; -Ketamine 500 mg/10 ML MDV ONE; -Ketorolac 30 MG/ML SDV ONE; -Lactated Ringers 1,000 ML IV SCH; -Lactated Ringers 1,000 ML ONE; +Lidocaine 1% 5 ML VIAL ONE; -Lidocaine 1%/Sod Bicarbonate in NS 8.4% 1 ML Syringe IDERM PRN; +Morphine 8 MG, EPINEPHrine 0.3 MG, Cefuroxime 750 MG, Ketorolac 30 MG, Sodium Chloride ... PRN; -Ondansetron 4 MG/2 ML SDV ONE; +Sodium Chloride 0.9% 10 ML Syringe FLUSH SCH; -ceFAZolin 1 GM Vial ONE
[2024-02-18 07:24] LABS: BASOPHILS ABSOLUTE AUTO 0.1 K/mm3 (0.0-0.2); BASOPHILS PERCENT AUTO 0.9 % (0.0-1.0); EOSINOPHILS ABSOLUTE AUTO 0.2 K/mm3 (0.0-0.4); EOSINOPHILS PERCENT AUTO 2.3 % (0.0-6.0); HEMATOCRIT 42.3 % (42.0-52.0); HEMOGLOBIN 14.5 gm/dl (14.0-18.0); IMMATURE GRAN ABSOLUTE AUTO 0.02 K/mm3 (0.00-0.05); IMMATURE GRAN PERCENT AUTO 0.3 % (0.0-0.4); LYMPHOCYTES ABSOLUTE AUTO 1.9 K/mm3 (1.0-4.8); LYMPHOCYTES PERCENT AUTO 25.2 % (24.0-44.0); MEAN CORPUSCULAR HEMOGLOBIN 33.8 pg (28.0-32.0); MEAN CORPUSCULAR HGB CONC 34.3 g/dl (32.0-36.0); MEAN CORPUSCULAR VOLUME 98.6 fl (83.0-99.0); MEAN PLATELET VOLUME 9.5 fl (9.4-12.4); MONOCYTES ABSOLUTE AUTO 0.9 K/mm3 (0.0-0.8); NEUTROPHILS ABSOLUTE AUTO 4.5 K/mm3 (1.8-7.7); NEUTROPHILS PERCENT AUTO 59.3 % (41.0-71.0); PLATELET COUNT,PLT 200 K/mm3 (150-400); RED BLOOD CELL COUNT 4.29 M/mm3 (4.52-5.90); WHITE BLOOD CELL COUNT,WBC 7.53 K/mm3 (3.9-11.3)
[2024-02-18 07:30] LABS: ANION GAP 15.8 (5-15); BUN/CREATININE RATIO 6.7 (14-18); CALCIUM 8.9 mg/dL (8.5-10.1); CREATININE 0.9 mg/dL (0.7-1.3); EST CRCL DRUG DOSING (CG) 77.52 mL/min; POTASSIUM,K 3.8 mEq/L (3.5-5.1)
[2024-02-18] MEDS: Lactated Ringers 1,000 ML IV SCH (07:45)
[2024-02-18] MEDS: Albuterol 0.083% 2.5 MG/3 ML Neb Soln NEB SCH (08:00)
[2024-02-18] MEDS ORDERED: ceFAZolin 2 GM Vial ONE (08:04)
[2024-02-18] MEDS ORDERED: Dexamethasone 4 MG/ML 5 ML MDV ONE (08:04)
[2024-02-18] MEDS ORDERED: Phenylephrine 1% 10 MG/ML SDV ONE (08:05)
[2024-02-18] MEDS ORDERED: ePHEDrine 50 MG/ML SDV ONE (08:05)
[2024-02-18] MEDS: Albuterol/Ipratropium 3.0-0.5 MG/3 ML Neb Soln ONE (08:06)
[2024-02-18] MEDS ORDERED: EPINEPHrine 1 MG/ML SDV ONE (08:07)
[2024-02-18] MEDS ORDERED: Ropivacaine 0.5% 5 MG/ML 30 ML SDV ONE (08:07)
[2024-02-18] MEDS ORDERED: Lactated Ringers 1,000 ML ONE (08:24)
[2024-02-18] MEDS ORDERED: Midazolam 1 MG/ML 2 ML SDV ONE (08:37)
[2024-02-18] MEDS ORDERED: Ketamine 200 MG/20 ML MDV ONE (08:57)
[2024-02-18] MEDS ORDERED: Ondansetron 4 MG/2 ML SDV IVPUSH PRN (09:07)
[2024-02-18] MEDS ORDERED: fentaNYL 100 MCG/2 ML SDV IVPUSH PRN (09:07)
[2024-02-18] MEDS ORDERED: HYDROmorphone 0.5 MG/0.5 ML Syringe IVPUSH PRN (09:07)
[2024-02-18] MEDS ORDERED: Propofol 200 MG/20 ML SDV ONE (09:29)
[2024-02-18] MEDS ORDERED: Ketorolac 30 MG/ML SDV ONE (09:34)
[2024-02-18] MEDS: Morphine 8 MG, EPINEPHrine 0.3 MG, Cefuroxime 750 MG, Ketorolac 30 MG, Sodium Chloride ... PRN (09:40)
[2024-02-18] MEDS: Vancomycin 1 GM SDV ONE (09:46)
[2024-02-18] MEDS: Tranexamic Acid 1,000 MG/10 ML Vial ONE (09:46)
[2024-02-18] MEDS: Bupivacaine 0.25% 10 ML SDV ONE (10:03)
[2024-02-18] MEDS: Triamcinolone Acetonide 40 MG/ML 1 ML SDV ONE (10:03)
[2024-02-18] MEDS: Acetaminophen/HYDROcodone 325-5 MG Tab PO PRN (12:00)
== END 2024-02-18 14:00 | disposition home or self-care (01) ==
LOC: JD.SDS 07:00
PROVIDERS: ATTEND Orthopaedic Surgery
DX: M17.0 Bilateral primary osteoarthritis of knee (principal); J44.1 Chronic obstructive pulmonary disease with (acute) exacerbation; G47.33 Obstructive sleep apnea (adult) (pediatric); I10 Essential (primary) hypertension; F17.210 Nicotine dependence, cigarettes, uncomplicated; Z79.899 Other long term (current) drug therapy; Z79.82 Long term (current) use of aspirin; Z88.8 Allergy status to other drugs, medicaments and biological substances; Z91.030 Bee allergy status
CPT/HCPCS: 0055T; 20610; 27447; 36415; 64447; 73560; 80048; 80307; 85025; 97110; 97161; A9270; C1713; C1776; J0171; J0665; J0690; J0697; J1100; J1885; J2250; J2270; J2371; J2704; J2795; J3010; J3301; J3370; J7120; 01402; J3490; J7620-GY

== ENCOUNTER 2024-04-10 08:32 | Observation (INO) | payer MEDICAID ==
[2024-04-10 09:25] LABS: BASOPHILS ABSOLUTE AUTO 0.1 K/mm3 (0.0-0.2); BASOPHILS PERCENT AUTO 0.4 % (0.0-1.0); EOSINOPHILS ABSOLUTE AUTO 0.1 K/mm3 (0.0-0.4); EOSINOPHILS PERCENT AUTO 0.6 % (0.0-6.0); HEMATOCRIT 41.6 % (42.0-52.0); HEMOGLOBIN 13.9 gm/dl (14.0-18.0); IMMATURE GRAN ABSOLUTE AUTO 0.12 K/mm3 (0.00-0.05); IMMATURE GRAN PERCENT AUTO 0.7 % (0.0-0.4); LYMPHOCYTES ABSOLUTE AUTO 2.5 K/mm3 (1.0-4.8); LYMPHOCYTES PERCENT AUTO 15.2 % (24.0-44.0); MEAN CORPUSCULAR HEMOGLOBIN 33.1 pg (28.0-32.0); MEAN CORPUSCULAR HGB CONC 33.4 g/dl (32.0-36.0); MEAN PLATELET VOLUME 9.3 fl (9.4-12.4); MONOCYTES ABSOLUTE AUTO 1.1 K/mm3 (0.0-0.8); MONOCYTES PERCENT AUTO 6.6 % (0.0-8.0); NEUTROPHILS ABSOLUTE AUTO 12.5 K/mm3 (1.8-7.7); NEUTROPHILS PERCENT AUTO 76.5 % (41.0-71.0); PLATELET COUNT,PLT 217 K/mm3 (150-400); WHITE BLOOD CELL COUNT,WBC 16.38 K/mm3 (3.9-11.3)
[2024-04-10 09:45] LABS: ANION GAP 13.7 (5-15); BUN/CREATININE RATIO 11.7 (14-18); CALCIUM 8.5 mg/dL (8.5-10.1); CREATININE 1.2 mg/dL (0.7-1.3); EST CRCL DRUG DOSING (CG) 60.17 mL/min; POTASSIUM,K 3.7 mEq/L (3.5-5.1)
[2024-04-10] MEDS: HYDROmorphone 1 MG/ML Syringe IVPUSH ONE (09:50)
[2024-04-10] MEDS: Sodium Chloride 0.9% 10 ML Syringe FLUSH ONE (09:51)
[2024-04-10] MEDS: Iopamidol 612 MG/ML 100 ML Bottle IVPUSH ONE (10:23)
[2024-04-10] MEDS ORDERED: LORazepam 2 MG/ML SDV IVPUSH PRN (13:25)
[2024-04-10] MEDS ORDERED: Morphine 2 MG/ML SYRINGE IVPUSH PRN (13:26)
[2024-04-10] MEDS ORDERED: Acetaminophen 325 MG Tab PO PRN (13:26)
[2024-04-10] MEDS ORDERED: Sennosides/Docusate Sodium 50-8.6 MG Tab PO PRN (13:26)
[2024-04-10] MEDS ORDERED: Melatonin 3 MG Tab PO PRN (13:26)
[2024-04-10] MEDS ORDERED: Naloxone 0.4 MG/ML SDV IVPUSH PRN (13:26)
[2024-04-10 13:51] LABS: ALBUMIN 3.5 g/dl (3.4-5.0); BILIRUBIN TOTAL 0.4 mg/dL (0.2-1.0); MAGNESIUM 1.8 mg/dL (1.8-2.4); PHOSPHORUS 4.4 mg/dL (2.6-4.7)
[2024-04-10] MEDS: predniSONE 20 MG Tab PO ONE (14:22)
[2024-04-10] MEDS: Potassium Chloride 20 MEQ Tab.ER PO ONE (14:22)
[2024-04-10] MEDS: LORazepam 2 MG/ML SDV IVPUSH ONE (14:23)
[2024-04-10] MEDS: Lidocaine 2% Jelly 5 ML Tube TOP SCH (14:47)
[2024-04-10] MEDS: Lidocaine 4% 1 each Patch TOP PRN (15:17)
[2024-04-10] MEDS: Tiotropium BR/Olodaterol HCL 4 GM Inhalation Spray 2.5mcg/1 dose; 10 doses INH SCH (16:54)
[2024-04-10] MEDS: oxyCODONE 5 MG Tab PO PRN (19:58)
[2024-04-10] MEDS: Albuterol/Ipratropium 3.0-0.5 MG/3 ML Neb Soln NEB PRN (21:14)
[2024-04-11] MEDS: LORazepam 1 MG Tab PO PRN (04:51)
[2024-04-11 05:31] LABS: BASOPHILS PERCENT AUTO 0.2 % (0.0-1.0); EOSINOPHILS ABSOLUTE AUTO 0.1 K/mm3 (0.0-0.4); EOSINOPHILS PERCENT AUTO 0.4 % (0.0-6.0); HEMATOCRIT 40.5 % (42.0-52.0); HEMOGLOBIN 13.7 gm/dl (14.0-18.0); IMMATURE GRAN ABSOLUTE AUTO 0.07 K/mm3 (0.00-0.05); IMMATURE GRAN PERCENT AUTO 0.6 % (0.0-0.4); LYMPHOCYTES ABSOLUTE AUTO 0.8 K/mm3 (1.0-4.8); LYMPHOCYTES PERCENT AUTO 6.6 % (24.0-44.0); MEAN CORPUSCULAR HEMOGLOBIN 33.3 pg (28.0-32.0); MEAN CORPUSCULAR HGB CONC 33.8 g/dl (32.0-36.0); MEAN CORPUSCULAR VOLUME 98.3 fl (83.0-99.0); MEAN PLATELET VOLUME 9.8 fl (9.4-12.4); MONOCYTES ABSOLUTE AUTO 0.7 K/mm3 (0.0-0.8); MONOCYTES PERCENT AUTO 5.6 % (0.0-8.0); NEUTROPHILS ABSOLUTE AUTO 10.6 K/mm3 (1.8-7.7); NEUTROPHILS PERCENT AUTO 86.6 % (41.0-71.0); PLATELET COUNT,PLT 178 K/mm3 (150-400); RED BLOOD CELL COUNT 4.12 M/mm3 (4.52-5.90); WHITE BLOOD CELL COUNT,WBC 12.18 K/mm3 (3.9-11.3)
[2024-04-11 05:50] LABS: A/G RATIO 0.9 (1-2); ALBUMIN 3.2 g/dl (3.4-5.0); ANION GAP 14.2 (5-15); BILIRUBIN TOTAL 0.6 mg/dL (0.2-1.0); BUN/CREATININE RATIO 15.6 (14-18); C-REACTIVE PROTEIN 0.71 mg/dL (<0.30); CALCIUM 8.8 mg/dL (8.5-10.1); CREATININE 0.9 mg/dL (0.7-1.3); EST CRCL DRUG DOSING (CG) 80.22 mL/min; MAGNESIUM 1.8 mg/dL (1.8-2.4); PHOSPHORUS 3.7 mg/dL (2.6-4.7); POTASSIUM,K 4.2 mEq/L (3.5-5.1); PROTEIN TOTAL,TP 6.6 g/dl (6.4-8.2)
[2024-04-11] MEDS: predniSONE 20 MG Tab PO SCH (08:00)
[2024-04-11] MEDS: Enoxaparin 40 MG/0.4 ML Syringe SUBCUT SCH (08:00)
== END 2024-04-11 14:05 | disposition home or self-care (01) ==
LOC: JD.ED 08:32 → JD.MS 13:26
PROVIDERS: ADMIT Student in an Organized Health Care Education/Training Program; ATTEND Student in an Organized Health Care Education/Training Program
DX: J96.01 Acute respiratory failure with hypoxia (principal); J44.1 Chronic obstructive pulmonary disease with (acute) exacerbation; K57.30 Diverticulosis of large intestine without perforation or abscess without bleeding; K76.0 Fatty (change of) liver, not elsewhere classified; I10 Essential (primary) hypertension; E78.5 Hyperlipidemia, unspecified; G47.33 Obstructive sleep apnea (adult) (pediatric); F17.210 Nicotine dependence, cigarettes, uncomplicated; Z79.899 Other long term (current) drug therapy; Z91.030 Bee allergy status; Z88.5 Allergy status to narcotic agent
CPT/HCPCS: 36415; 71101; 73562; 74177; 80048; 80053; 80307; 82040; 82247; 83735; 84075; 84100; 84450; 84460; 85025; 86140; 93005; 94640; 94760; 94761; 96372; 96374; 96375; 99285; A9270; G0378; J1171; J1650; J2060; J7512; Q9967; J7620-GY

== ENCOUNTER 2024-04-26 15:43 | Emergency (ER) | payer MEDICAID ==
[2024-04-26 18:14] LABS: BASOPHILS ABSOLUTE AUTO 0.1 K/mm3 (0.0-0.2); BASOPHILS PERCENT AUTO 0.5 % (0.0-1.0); EOSINOPHILS ABSOLUTE AUTO 0.1 K/mm3 (0.0-0.4); EOSINOPHILS PERCENT AUTO 0.7 % (0.0-6.0); HEMATOCRIT 45.4 % (42.0-52.0); HEMOGLOBIN 14.9 gm/dl (14.0-18.0); IMMATURE GRAN ABSOLUTE AUTO 0.02 K/mm3 (0.00-0.05); IMMATURE GRAN PERCENT AUTO 0.2 % (0.0-0.4); LYMPHOCYTES ABSOLUTE AUTO 1.1 K/mm3 (1.0-4.8); MEAN CORPUSCULAR HEMOGLOBIN 33.5 pg (28.0-32.0); MEAN CORPUSCULAR HGB CONC 32.8 g/dl (32.0-36.0); MONOCYTES ABSOLUTE AUTO 0.6 K/mm3 (0.0-0.8); NEUTROPHILS ABSOLUTE AUTO 7.4 K/mm3 (1.8-7.7); NEUTROPHILS PERCENT AUTO 80.6 % (41.0-71.0); PLATELET COUNT,PLT 173 K/mm3 (150-400); RED BLOOD CELL COUNT 4.45 M/mm3 (4.52-5.90); WHITE BLOOD CELL COUNT,WBC 9.18 K/mm3 (3.9-11.3)
[2024-04-26 18:40] LABS: ALBUMIN 3.2 g/dl (3.4-5.0); ANION GAP 13.5 (5-15); BILIRUBIN TOTAL 0.7 mg/dL (0.2-1.0); BUN/CREATININE RATIO 7.7 (14-18); CALCIUM 8.9 mg/dL (8.5-10.1); CREATININE 1.3 mg/dL (0.7-1.3); EST CRCL DRUG DOSING (CG) 55.54 mL/min; MAGNESIUM 1.5 mg/dL (1.8-2.4); POTASSIUM,K 3.5 mEq/L (3.5-5.1); PROTEIN TOTAL,TP 6.4 g/dl (6.4-8.2)
== END 2024-04-26 19:05 | disposition home or self-care (01) ==
LOC: JD.ED 15:43
DX: I48.0 Paroxysmal atrial fibrillation (principal); F10.10 Alcohol abuse, uncomplicated; J44.9 Chronic obstructive pulmonary disease, unspecified; I10 Essential (primary) hypertension; E66.9 Obesity, unspecified; Z79.899 Other long term (current) drug therapy; Z86.16 Personal history of COVID-19; F17.210 Nicotine dependence, cigarettes, uncomplicated; Z91.030 Bee allergy status; Z88.8 Allergy status to other drugs, medicaments and biological substances; Z88.5 Allergy status to narcotic agent
CPT/HCPCS: 36415; 80053; 82550; 83735; 84484; 85025; 99285

== ENCOUNTER 2024-07-27 07:59 | Emergency (ER) | payer MEDICAID ==
[2024-07-27 08:39] LABS: BASOPHILS ABSOLUTE AUTO 0.1 K/mm3 (0.0-0.2); BASOPHILS PERCENT AUTO 1.3 % (0.0-1.0); EOSINOPHILS ABSOLUTE AUTO 0.1 K/mm3 (0.0-0.4); EOSINOPHILS PERCENT AUTO 1.3 % (0.0-6.0); HEMATOCRIT 44.2 % (42.0-52.0); IMMATURE GRAN ABSOLUTE AUTO 0.03 K/mm3 (0.00-0.05); IMMATURE GRAN PERCENT AUTO 0.4 % (0.0-0.4); LYMPHOCYTES ABSOLUTE AUTO 1.7 K/mm3 (1.0-4.8); LYMPHOCYTES PERCENT AUTO 24.4 % (24.0-44.0); MEAN CORPUSCULAR HEMOGLOBIN 32.8 pg (28.0-32.0); MEAN CORPUSCULAR HGB CONC 33.9 g/dl (32.0-36.0); MEAN CORPUSCULAR VOLUME 96.5 fl (83.0-99.0); MEAN PLATELET VOLUME 9.6 fl (9.4-12.4); MONOCYTES ABSOLUTE AUTO 0.7 K/mm3 (0.0-0.8); MONOCYTES PERCENT AUTO 9.8 % (0.0-8.0); NEUTROPHILS ABSOLUTE AUTO 4.2 K/mm3 (1.8-7.7); NEUTROPHILS PERCENT AUTO 62.8 % (41.0-71.0); PLATELET COUNT,PLT 197 K/mm3 (150-400); RED BLOOD CELL COUNT 4.58 M/mm3 (4.52-5.90); WHITE BLOOD CELL COUNT,WBC 6.76 K/mm3 (3.9-11.3)
[2024-07-27 08:53] LABS: INR 1.55
[2024-07-27] MEDS: Sodium Chloride 0.9% 1,000 ML IV ONE (08:54)
[2024-07-27] MEDS: Ondansetron 4 MG/2 ML SDV IVPUSH ONE (08:54)
[2024-07-27] MEDS: Folic Acid 1 MG Tab PO ONE (08:55)
[2024-07-27] MEDS: Thiamine 200 MG/2 ML MDV IVPUSH ONE (08:56)
[2024-07-27] MEDS: Famotidine 20 MG/2 ML SDV IVPUSH ONE (08:57)
[2024-07-27] MEDS: Pantoprazole 40 MG Vial IVPUSH ONE (08:59)
[2024-07-27 09:10] LABS: A/G RATIO 0.9 (1-2); ALBUMIN 3.4 g/dl (3.4-5.0); ANION GAP 15.6 (5-15); BILIRUBIN TOTAL 0.5 mg/dL (0.2-1.0); BUN/CREATININE RATIO 10.8 (14-18); CREATININE 1.2 mg/dL (0.7-1.3); EST CRCL DRUG DOSING (CG) 60.17 mL/min; ETHANOL BLOOD MEDICAL 0.11 gm% (0.00); MAGNESIUM 1.7 mg/dL (1.8-2.4); POTASSIUM,K 3.6 mEq/L (3.5-5.1)
[2024-07-27] MEDS: LORazepam 2 MG/ML SDV IVPUSH ONE (10:03)
[2024-07-27 10:31] LABS: BARBITURATE SCREEN,URINE NEGATIVE (CUTOFF=200); BENZODIAZEPINES SCREEN,URINE NEGATIVE (CUTOFF=150); BUPRENORPHINE SCREEN,URINE NEGATIVE (CUTOFF=10); METHADONE SCREEN, URINE NEGATIVE (CUT0FF=200); METHAMPHETAMINES SCREEN, URINE NEGATIVE (CUTOFF=500); OXYCODONE SCREEN,URINE NEGATIVE (CUT0FF=100); THC SCREEN,URINE 20 NG/ML NEGATIVE (CUTOFF=50)
[2024-07-27 10:38] LABS: AMPHETAMINES SCREEN, URINE NEGATIVE (CUTOFF=500)
[2024-07-27] MEDS: Magnesium Sulf/Wat 2 GM/50 mL 2 GM/50 ML BAG IV ONE (10:42)
== END 2024-07-27 13:09 | disposition other institution (70) ==
LOC: JD.ED 07:59
DX: K21.9 Gastro-esophageal reflux disease without esophagitis (principal); E83.42 Hypomagnesemia; F10.920 Alcohol use, unspecified with intoxication, uncomplicated; I10 Essential (primary) hypertension; E66.9 Obesity, unspecified; J44.89 Other specified chronic obstructive pulmonary disease; Z79.899 Other long term (current) drug therapy; Z91.030 Bee allergy status; Z88.5 Allergy status to narcotic agent; Z88.8 Allergy status to other drugs, medicaments and biological substances; Z86.16 Personal history of COVID-19; Z68.38 Body mass index [BMI] 38.0-38.9, adult
CPT/HCPCS: 36415; 71045; 80053; 80306; 80307; 82550; 83690; 83735; 83880; 84484; 85025; 85610; 93005; 96365; 96375; 99285; A9270; J2060; J2405; J2470; J3411; J3475; J7030; 93010; 99284